=== PATIENT | male | born 1960 | race Caucasian/White ===

== ENCOUNTER 2016-09-25 23:35 | Emergency (ER) | payer SELFPAY ==
[2016-09-25] MEDS ORDERED: Sodium Chloride 0.9% 1,000 ML IV SCH (23:45)
[2016-09-25] MEDS ORDERED: Ondansetron 4 MG/2 ML SDV IVPUSH ONE (23:56)
[2016-09-25] MEDS ORDERED: HYDROmorphone 1 MG/ML Syringe IVPUSH ONE (23:56)
--- NOTE | 2016-09-26 00:39 | EDM.PDOC ---
ED HPI GENERAL MEDICAL PROBLEM - General Chief Complaint: Abdominal Pain Stated Complaint: [facility] Time Seen by Provider: 09/25/16 23:41 Source of Information: Reports: Patient, RN Notes Reviewed History Limitations: Reports: No Limitations - History of Present Illness INITIAL COMMENTS - FREE TEXT/NARRATIVE: The patient states that he developed generalized abdominal pain, crampy in character, around 12 noon yesterday, 09/25/2016. The pain has been constant, but getting worse. The patient has not identified any modifiers. No recent fever, however, the patient has felt chilled. He has had nausea and emesis, although no constipation, diarrhea, or urinary symptoms. No prior similar symptoms, and no history of prior abdominal surgery. The patient states that he takes about 10-12 extra strength Excedrin per day, since 2002 or 2003, for chronic right shoulder pain. The patient's last oral solid food was around 15:00 09/25/2016, and his last oral liquid intake was around 23:20 tonight. The patient lives in [place]. Abdominal Pain Score (Numeric/FACES): 10 - Related Data Allergies Allergy/AdvReac Type Severity Reaction Status Date / Time Penicillins Allergy Rash Verified 09/25/16 23:43 Home Meds: Home Meds Ranitidine [Zantac] 150 mg PO DAILY 09/25/16 [History] Past Medical History Gastrointestinal History: Reports: GERD - Past Surgical History Musculoskeletal Surgical History: Reports: Other (See Below) (Left fourth finger reattachment) Social & Family History - Tobacco Use Smoking Status *Q: Current Every Day Smoker Years of Tobacco use: 45 Packs/Tins Daily: 2 - Alcohol Use Alcohol Use History: Yes Alcohol Use Frequency: Socially - Recreational Drug Use Recreational Drug Use: No - Living Situation & Occupation Living situation: Reports: , with Spouse Occupation: Employed ([employer]) ED ROS GENERAL - Review of Systems Review Of Systems: See Below Constitutional: Reports: No Symptoms HEENT: Reports: No Symptoms Respiratory: Reports: No Symptoms Cardiovascular: Reports: No Symptoms Endocrine: Reports: No Symptoms GI/Abdominal: Reports: No Symptoms : Reports: No Symptoms Musculoskeletal: Reports: Shoulder Pain (right, chronic) Skin: Reports: No Symptoms Neurological: Reports: No Symptoms Psychiatric: Reports: No Symptoms Hematologic/Lymphatic: Reports: No Symptoms Immunologic: Reports: No Symptoms ED EXAM, GI/ABD - Physical Exam Exam: See Below Exam Limited By: No Limitations General Appearance: Alert, WD/WN, Moderate Distress (appears uncomfortable) Eyes: Bilateral: Normal Appearance, EOMI Ears: Normal External Exam, Hearing Grossly Normal Nose: Normal Inspection, No Blood Throat/Mouth: Normal Inspection, Normal Lips, Normal Voice, No Airway Compromise Head: Atraumatic, Normocephalic Neck: Normal Inspection, Full Range of Motion Respiratory/Chest: No Respiratory Distress, Lungs Clear, Normal Breath Sounds, No Accessory Muscle Use Cardiovascular: Normal Peripheral Pulses, Regular Rate, Rhythm, No Gallop, No JVD, No Murmur, No Rub GI/Abdominal Exam: No Organomegaly, No Distention, No Abnormal Bruit, No Mass, Tender (Right upper quadrant only. Nontender elsewhere.), Other (No bowel sounds ) (Male) Exam: Deferred Rectal (Males) Exam: Deferred Back Exam: Normal Inspection, Full Range of Motion. No: CVA Tenderness (L), CVA Tenderness (R) Extremities: Normal Inspection, Normal Range of Motion, No Pedal Edema, Normal Capillary Refill Neurological: Alert, Oriented, Normal Cognition, No Motor/Sensory Deficits Psychiatric: Normal Affect Skin Exam: Warm, Dry, Intact, Normal Color, No Rash Lymphatic: No Adenopathy Course - Vital Signs Last Recorded V/S: Last Vital Signs Temp 37.0 C 09/26/16 03:33 Pulse 89 09/26/16 03:33 Resp 16 09/26/16 03:33 BP 130/85 09/26/16 03:33 Pulse Ox 95 09/26/16 03:33 - Orders/Labs/Meds Orders: Active Orders 24 hr Category Date Time Status Abdomen Pelvis w Cont [CT] Stat Exams 09/25/16 23:56 Taken Potassium Chloride [KCl 10 MEQ in Water 100 ML] 10 meq Med 09/26/16 03:08 Active Premix Bag 1 bag IV ASDIRECTED Sodium Chloride 0.9% [Normal Saline] 1,000 ml Med 09/26/16 03:27 Active IV ONETIME Medication Orders Potassium Chloride 10 meq/ (Premix) 100 mls @ 100 mls/hr IV ASDIRECTED STA Stop: 09/26/16 04:07 Last Admin: 09/26/16 03:41 Dose: 100 mls/hr Sodium Chloride (Normal Saline) 1,000 mls @ 999 mls/hr IV ONETIME ONE Stop: 09/26/16 04:27 Last Admin: 09/26/16 03:40 Dose: 999 mls/hr Labs: Laboratory Tests 09/26/16 09/26/16 09/26/16 Range/Units 00:07 00:07 01:45 WBC 25.54 H (4.23-9.07) K/mm3 RBC 5.21 (4.63-6.08) M/mm3 Hgb 16.8 (13.7-17.5) gm/L Hct 47.0 (40.1-51.0) % MCV 90.2 (79.0-92.2) fl MCH 32.2 (25.7-32.2) pg MCHC 35.7 H (32.2-35.5) g/dl RDW Std Deviation 41.3 (35.1-43.9) fL Plt Count 220 (163-337) K/mm3 MPV 10.0 (9.4-12.3) fl Neutrophils % (Manual) 88 H (40-60) % Band Neutrophils % 0 (0-10) % Lymphocytes % (Manual) 7 L (20-40) % Atypical Lymphs % 0 % Monocytes % (Manual) 5 (2-10) % Eosinophils % (Manual) 0 L (0.8-7.0) % Basophils % (Manual) 0 L (0.2-1.2) Platelet Estimate Adequate RBC Morph Comment Normal Sodium 144 (136-145) mEq/L Potassium 2.8 L (3.5-5.1) mEq/L Chloride 105 (98-107) mEq/L Carbon Dioxide 29 (21-32) mEq/L Anion Gap 12.8 (5-15) BUN 15 (7-18) mg/dL Creatinine 1.2 (0.7-1.3) mg/dL Est Cr Clr Drug Dosing 73.21 mL/min Estimated GFR (MDRD) > 60 (>60) mL/min BUN/Creatinine Ratio 12.5 L (14-18) Glucose 140 H (74-106) mg/dL Calcium 10.0 (8.5-10.1) mg/dL Total Bilirubin 1.9 H (0.2-1.0) mg/dL AST 146 H (15-37) U/L ALT 141 H (16-63) U/L Alkaline Phosphatase 95 (46-116) U/L Total Protein 7.5 (6.4-8.2) g/dl Albumin 4.4 (3.4-5.0) g/dl Globulin 3.1 gm/dL Albumin/Globulin Ratio 1.4 (1-2) Lipase 73308 H (73-393) U/L Urine Color Dark yellow (Yellow) Urine Appearance Clear (Clear) Urine pH 6.0 (5.0-8.0) Ur Specific [place] 1.015 (1.005-1.030) Urine Protein 1+ H (Negative) Urine Glucose (UA) Negative (Negative) Urine Ketones Negative (Negative) Urine Occult Blood Negative (Negative) Urine Nitrite Negative (Negative) Urine Bilirubin 1+ H (Negative) Urine Urobilinogen 4.0 H (0.2-1.0) Ur Leukocyte Esterase Negative (Negative) Urine RBC 0-5 (0-5) /hpf Urine WBC 0-5 (0-5) /hpf Ur Epithelial Cells 0-5 (0-5) /hpf Urine Bacteria Few (FEW) /hpf Urine Mucus Moderate H (FEW) /hpf Meds: Medications Generic Name Dose Route Start Last Admin Trade Name Freq PRN Reason Stop Dose Admin Potassium Chloride 10 meq/ 100 mls @ 100 mls/hr 09/26/16 03:08 09/26/16 03:41 Premix IV 09/26/16 04:07 100 mls/hr ASDIRECTED STA Administration Sodium Chloride 1,000 mls @ 999 mls/hr 09/26/16 03:27 09/26/16 03:40 Normal Saline IV 09/26/16 04:27 999 mls/hr ONETIME ONE Administration Discontinued Medications Generic Name Dose Route Start Last Admin Trade Name Freq PRN Reason Stop Dose Admin Diatrizoate Meglum/Diatrizoate Sod 90 ml 09/26/16 01:07 09/26/16 01:43 Gastrografin 37% PO 09/26/16 01:08 90 ml ONETIME ONE Administration Hydromorphone HCl 1 mg 09/25/16 23:56 09/26/16 00:08 Dilaudid IVPUSH 09/25/16 23:57 1 mg ONETIME ONE Administration Hydromorphone HCl 1 mg 09/26/16 03:27 09/26/16 03:40 Dilaudid IVPUSH 09/26/16 03:28 1 mg ONETIME ONE Administration Sodium Chloride 1,000 mls @ 150 mls/hr 09/25/16 23:45 09/26/16 00:07 Normal Saline IV 150 mls/hr ASDIRECTED LISA Administration Potassium Chloride 10 meq/ 100 mls @ 100 mls/hr 09/26/16 00:56 09/26/16 01:06 Premix IV 09/26/16 01:55 100 mls/hr ONETIME STA Administration Protocol Sodium Chloride 1,000 mls @ 999 mls/hr 09/26/16 01:00 09/26/16 03:31 Normal Saline IV 09/26/16 02:00 Not Given ONETIME ONE Cefoxitin Sodium 2 gm/ Sodium 100 mls @ 200 mls/hr 09/26/16 02:48 Chloride IV 09/26/16 03:17 ONETIME ONE Cefoxitin Sodium 2 gm/ Premix 50 mls @ 100 mls/hr 09/26/16 03:03 09/26/16 03: 08 IV 09/26/16 03:32 100 mls/hr ONETIME ONE Administration Cefoxitin Sodium Confirm 09/26/16 03:04 09/26/16 03:08 Mefoxin In Dextrose,Iso-Osm 2 Gm/50 Ml Administered 09/26/16 03:05 Not Given Dose 50 mls @ as directed .ROUTE .STK-MED ONE Iopamidol 125 ml 09/26/16 01:07 09/26/16 01:43 Isovue-300 (61%) IVPUSH 09/26/16 01:08 125 ml ONETIME ONE Administration Ondansetron HCl 4 mg 09/25/16 23:56 09/26/16 00:07 Zofran IVPUSH 09/25/16 23:57 4 mg ONETIME ONE Administration - Re-Assessments/Exams Free Text/Narrative Re-Assessment/Exam: 09/26/16 01:01 The patient's potassium has returned depressed at 2.8. I have ordered 10 mEq potassium chloride IV to be given over one hour. The patient's total bilirubin is elevated at 1.9, with modest elevations of his transaminases. His lipase is substantially elevated at 14,214, consistent with acute pancreatitis. I have discontinued the normal saline at 150 mL per hour order and ordered normal saline 1 L bolus. The patient's WBC count is significantly elevated at 25.54, however, he has 0% bandemia. This elevation is likely due to demargination, unless the CT scan indicates an infection. 09/26/16 02:[address] Julio, [facility] Radiologist at 02:08. The CT scan demonstrates pancreatitis with possible necrosis of the head. There appears to be one or more duodenal ulcers with possible perforation. The possibility of perforated one ulcer leading to secondary pancreatitis cannot be excluded. This postulate is supported by the finding that the remainder of the pancreas is normal. 09/26/16 02:37 CT of the abdomen and pelvis with oral and IV contrast is read by [facility] as "Acute pancreatitis possibly secondary penetrating/perforating duodenal ulcerative disease breaching into the head of the pancreas." Specifically, it is reported "Extensive phlegmon surrounding the uncinate process and head of the pancreas with some scattered areas of fluid accumulation. Coronal image #44 and axial image #39 appear to show a fissure extending alongside a slightly dilated pancreatic duct near the ampulla. There is a crescent of air that is situated along the medial wall of the pylorus that appears to be well from luminal contents, suggesting a second area of ulceration. There is no pneumoperitoneum currently however the perforation of at least the more distal ulcerative focus into the pancreas may have actually led to the acute pancreatitis. The body and tail portions of pancreas are curiously absent the same degree of inflammatory changes are otherwise seen proximally." 09/26/16 02:[address] Hui at 02:40. He agrees that the patient likely has a penetrating duodenal ulcer, and will require surgery, however, the potential surgery is beyond the scope of this facility, therefore he is recommending transfer to [place]. The above was discussed with the patient, who is agreeable to transfer. 09/26/16 03:[address] Tomas, general surgeon market research consultant at [facility], at 03:10. He agrees with Dr. Hui that the patient may require a complicated hepatobiliary-pancreatic surgery and if so, he feels that the patient's case would be too complicated for any surgeon in [place]. He is recommending transfer to [facility]. 09/26/16 03:[address] Pederson, surgeon market research consultant at [facility], at 03:36. He accepts the patient for transfer to their Emergency Department. The patient will go by fixed wing. Departure - Departure Time of Disposition: 03:43 Disposition: DC/Tfer to Acute Hospital 02 Condition: Serious Clinical Impression: Perforated duodenal ulcer, Acute pancreatitis, Hypokalemia - Discharge Information - My Orders Last 24 Hours: My Active Orders 09/25/16 23:56 Abdomen Pelvis w Cont [CT] Stat 09/26/16 03:08 Potassium Chloride [KCl 10 MEQ in Water 100 ML] 10 meq Premix Bag 1 bag IV ASDIRECTED 09/26/16 03:27 Sodium Chloride 0.9% [Normal Saline] 1,000 ml IV ONETIME - Assessment/Plan Last 24 Hours: My Active Orders 09/25/16 23:56 Abdomen Pelvis w Cont [CT] Stat 09/26/16 03:08 Potassium Chloride [KCl 10 MEQ in Water 100 ML] 10 meq Premix Bag 1 bag IV ASDIRECTED 09/26/16 03:27 Sodium Chloride 0.9% [Normal Saline] 1,000 ml IV ONETIME
[2016-09-26] MEDS ORDERED: Potassium Chloride 10 MEQ in Premix Bag 1 BAG IV STA ×2 (00:56→03:08)
[2016-09-26] MEDS ORDERED: Sodium Chloride 0.9% 1,000 ML IV ONE ×2 (01:00→03:27)
[2016-09-26] MEDS ORDERED: Iopamidol 612 MG/ML 150 ML Bottle IVPUSH ONE (01:07)
[2016-09-26] MEDS ORDERED: Diatrizoate Meglumine/Diatrizoate Sodium 37% 120 ML Bottle PO ONE (01:07)
[2016-09-26] MEDS ORDERED: LORazepam 1 MG Tab PO ONE (02:33)
[2016-09-26] MEDS ORDERED: cefOXitin 2 GM in Sodium Chloride 0.9% 100 ML IV ONE (02:48)
[2016-09-26] MEDS ORDERED: cefOXitin 2 GM in Premix Bag 1 BAG IV ONE (03:03)
[2016-09-26] MEDS ORDERED: HYDROmorphone 1 MG/ML Syringe IVPUSH ONE (03:27)
[2016-09-26 04:41] VITALS: BP 126/88
--- NOTE | 2016-09-26 07:58 | CT ---
CT abdomen and pelvis Technique: Multiple axial sections were obtained from above the dome of the diaphragm inferiorly through the pubic symphysis. Intravenous and oral contrast was utilized. Delayed images were also obtained through the abdomen and pelvis. Comparison: No previous study is available. Findings: Diffuse inflammatory change is identified around most of the pancreas most prominent within the body and head of the pancreas. Unusual collection of air which appears to arise off the duodenum and difficult to exclude a penetrating ulcer. This may be the etiology of the pancreatitis. Slight atelectasis is seen within both lung bases. Liver shows no focal parenchymal abnormality. Small amount of contrast noted within the distal esophagus which is compatible with reflux. Adrenal glands show no nodule. Kidneys show symmetric contrast enhancement without hydronephrosis or mass. Delayed images show contrast throughout the ureters and within the bladder. Aorta shows mild atherosclerotic change without aneurysmal dilatation. No retroperitoneal adenopathy is seen. The appendix is seen which appears normal. No pelvic mass or adenopathy is identified. Bone window settings were reviewed which appear within normal limits for the patient's age. Impression: 1. Inflammatory change around the pancreas compatible with pancreatitis. 2. Unusual collection of air possibly within the duodenal wall representing penetrating ulcer. This may be the etiology of the pancreatitis. Endoscopy is recommended to further evaluate. 3. Incidental atelectasis within both lung bases. Diagnostic code #5 I agree with preliminary report issued by [facility] ([facility] report finalized on 09/26/16, 3:32 AM Central Time)
== END 2016-09-26 04:25 ==
LOC: JD.ED 23:35
DX: K85.90 Acute pancreatitis without necrosis or infection, unspecified (principal); K26.5 Chronic or unspecified duodenal ulcer with perforation; E87.6 Hypokalemia; K21.9 Gastro-esophageal reflux disease without esophagitis; F17.210 Nicotine dependence, cigarettes, uncomplicated; Z88.0 Allergy status to penicillin; Z79.899 Other long term (current) drug therapy
CPT/HCPCS: 36415; 74177; 80053; 81001; 83690; 85025; 96361; 96365; 96366; 96367; 96375; 96376; 99285; J0694; J1170; J2405; J3480; J7040; Q9963; Q9967